=== PATIENT | male | born 1980 | race Asian ===

== ENCOUNTER 2017-02-25 18:50 | Emergency (ER) | payer SELFPAY ==
[~2017-02-25] VITALS: Ht 157.5 cm; Wt 85.0 kg
[2017-02-25 18:59] VITALS: BP 130/91; TEMP 97.9
[2017-02-25] MEDS ORDERED: CEPHALEXIN500 M1 PO (20:06)
[2017-02-25 20:15] VITALS: PULSE 71
== END 2017-02-25 20:15 | disposition home or self-care (01) ==
LOC: COL.ER 18:50
DX: S61.012A Laceration without foreign body of left thumb without damage to nail, initial encounter (principal); Z23 Encounter for immunization; W26.0XXA Contact with knife, initial encounter